=== PATIENT | female | born 1970 | race Caucasian/White ===

== ENCOUNTER → 2017-03-17 09:39 | Outpatient (CLI) | payer MEDICAID | END | disposition home or self-care (01) | LOC: D.RT 09:39 | DX: J44.9 Chronic obstructive pulmonary disease, unspecified (principal) ==

== ENCOUNTER → 2017-04-15 16:54 | Outpatient (CLI) | payer MEDICAID | END | disposition home or self-care (01) | LOC: D.MAMMO 13:00 | DX: Z12.31 Encounter for screening mammogram for malignant neoplasm of breast (principal) ==